=== PATIENT | female | born 1980 | race Asian ===

== ENCOUNTER 2019-08-07 12:00 | Outpatient (CLI) | payer OTHER | END 2019-08-07 23:59 | disposition home or self-care (01) | LOC: LAB.R 12:00 | PROVIDERS: ATTEND Obstetrics & Gynecology | DX: O34.211 Maternal care for low transverse scar from previous cesarean delivery (principal) | CPT/HCPCS: 87081; 87797 ==

== ENCOUNTER 2019-08-15 05:30 | Inpatient (IN) | payer OTHER ==
[2019-08-15] MEDS ORDERED: LACTATED RINGERS 1,000 ML IV ONE ×2 (05:57→07:28)
[2019-08-15 06:26] LABS: BASOPHILS % (AUTO) 0.4 %; EOSINOPHILS # (AUTO) 0.1 10^3/uL (0.0-0.7); LYMPHOCYTES # (AUTO) 1.4 10^3/uL (1.5-3.5); LYMPHOCYTES % (AUTO) 16.9 %; MEAN CORPUSCULAR HEMOGLOBIN 30.4 pg (27.0-31.0); MEAN CORPUSCULAR HGB CONC 32.6 g/dL (32.0-36.0); MEAN CORPUSCULAR VOLUME 93.2 fL (81.0-99.0); MONOCYTES # (AUTO) 0.6 10^3/uL (0.0-1.0); NEUTROPHILS # (AUTO) 5.9 10^3/uL (1.5-6.6); NEUTROPHILS % (AUTO) 73.9 %; PLT - PLATELET COUNT 247 10^3/uL (130-450); RED BLOOD COUNT 3.95 10^6/uL (4.20-5.40); RED CELL DISTRIBUTION WIDTH 13.2 % (12.0-15.0)
[2019-08-15 06:35] LABS: BILIRUBIN,URINE NEGATIVE (NEGATIVE); GLUCOSE, URINE (UA) NEGATIVE (NEGATIVE); KETONES,URINE (UA) NEGATIVE (NEGATIVE); LEUKOCYTE ESTERASE, URINE NEGATIVE (NEGATIVE); NITRITE,URINE NEGATIVE (NEGATIVE); OCCULT BLOOD,URINE NEGATIVE (NEGATIVE); PROTEIN,URINE NEGATIVE (NEGATIVE); UROBILINOGEN,URINE 0.2 (NORMAL) E.U./dL (NORMAL)
[2019-08-15 06:39] LABS: CLARITY,URINE CLEAR (CLEAR)
[2019-08-15 06:47] LABS: BACTERIA,URINE Rare /HPF (None Seen); RBC,URINE None Seen /HPF (0-5); SQUAMOUS EPITHELIAL CELL,UR MOD Squamous (<= Few)
--- NOTE | 2019-08-15 07:01 | ANESTHESIA ---
Pre-Anesthesia VS, & Labs - Diagnosis previous c/s, term - Procedure repeat c/s Vital Signs: Temp Pulse Resp BP Pulse Ox 36.7 C 74 16 111/67 100 08/15/19 06:01 08/15/19 06:01 08/15/19 06:01 08/15/19 06:01 08/15/19 06:01 Height 5 ft 5 in Weight (kg) 62.596 kg - NPO >8 hours - Is Patient ?: Yes - Lab Results Current Lab Results: Laboratory Tests 08/15/19 06:00: WBC 8.0, RBC 3.95 L, Hgb 12.0, Hct 36.8 L, MCV 93.2, MCH 30.4, MCHC 32.6, RDW 13.2, Plt Count 247, MPV 9.0, Neut # (Auto) 5.9, Lymph # (Auto) 1.4 L, [place] # (Auto) 0.6, Eos # (Auto) 0.1, Baso # (Auto) 0.0, Absolute Nucleated RBC 0.00, Nucleated RBC % 0.0 Fish Bones: 08/15/19 06:00 Home Medications and Allergies Active Medications Ampicillin Sodium 2 gm/ Sodium (Chloride) 100 mls @ 100 mls/hr IV ONCE KELLY Stop: 08/15/19 12:00 Allergies/Adverse Reactions: Allergies Allergy/AdvReac Type Severity Reaction Status Date / Time No Known Drug Allergies Allergy Verified 08/15/19 06:27 Anes History & Medical History - Anesthetic History Anesthesia Complications: reports: No previous complications - Medical History Cardiovascular: reports: None Pulmonary: reports: None Gastrointestinal: reports: None Urinary: reports: None Neuro: reports: None Musculoskeletal: reports: None Endocrine/Autoimmune: reports: None Blood Disorders: reports: None Skin: reports: None Smoking Status: Never smoker Psychosocial: reports: No issues indicated - Surgical History General: Cholecystectomy - Obstetrical History : 2 Parity: 1 Events: positive: None Complications: positive: None Exam General: Alert, Oriented x3, Cooperative, No acute distress Dental: WNL Mouth Openin Fingerbreadth Neck Mobility: Normal Mallampati classification: III Thyromental Distance: greater than 6 cm Respiratory: Lungs clear, Normal breath sounds, No respiratory distress, No accessory muscle use Cardiovascular: Regular rate, Normal S1, Normal S2, No murmurs Plan Anesthesia Type: Spinal Consent for Procedure(s) Verified and Reviewed: Yes Code Status: Attempt Resuscitation ASA classification: 2-Mild systemic disease Is this case an emergency?: No
[2019-08-15] MEDS ORDERED: CITRIC ACID/SODIUM CITRATE 15 ML UDC PO ONE (07:04)
[2019-08-15] MEDS ORDERED: PHENYLEPHRINE 10 MG/ML VIAL IV ONE (07:28)
[2019-08-15] MEDS ORDERED: fentaNYL 100 MCG/2 ML VIAL IVP ONE (07:28)
[2019-08-15] MEDS ORDERED: KETOROLAC 30 MG/ML VIAL IVP ONE (07:28)
[2019-08-15] MEDS ORDERED: SODIUM CHLORIDE 0.9% 500 ML IV ONE (07:28)
[2019-08-15] MEDS ORDERED: MORPHINE PF 5 MG/10 ML VIAL IVP ONE (07:28)
[2019-08-15] MEDS ORDERED: AMPICILLIN 2 GM in SODIUM CHLORIDE 0.9% MINIBAG 100 ML IV SCH (07:30)
[2019-08-15] MEDS ORDERED: OXYTOCIN/DEXTROSE 5 % 30 UNIT/500 ML BAG IV PRN (09:00)
[2019-08-15] MEDS ORDERED: SODIUM CHLORIDE FLUSH 0.9% 10 ML SYRINGE IVP PRN (09:00)
[2019-08-15] MEDS ORDERED: LACTATED RINGERS 1,000 ML IV SCH (09:00)
--- NOTE | 2019-08-15 11:00 | OPERATIVE REPORT ---
DATE OF SERVICE: 08/15/2019 Physician: Shashank Eisenberg DO PREOPERATIVE DIAGNOSES 1. Intrauterine at 39 weeks' gestation. 2. Previous section. POSTOPERATIVE DIAGNOSES 1. Delivery at 39 weeks' gestation. 2. Previous section. PROCEDURE: Repeat low transverse section. SURGEON: Shashank Eisenberg DO SURGICAL ASST: J Carlos Byers MD, who assisted in draping and retraction. ANESTHESIA: Spinal. ESTIMATED BLOOD LOSS: 100 mL WOUND CLASSIFICATION: Two. COUNTS: Sponge count and needle count were correct. CLINICAL HISTORY: Please see the History and Physical. SURGICAL FINDINGS: There were essentially no good surgical planes between the skin and the rectus musculature. This was all very dense scar tissue. The rectus musculature was also adhesed together in the midline. The fascia was again very much adhesed to the rectus musculature. The lower uterine segment also appeared to have a window more so to just a little right of the midline and proceeding to the left. This was exceptionally thin. One could see the head before the serosa was even opened. The fallopian tubes and ovaries bilaterally were otherwise unremarkable. No intraabdominal adhesions were appreciated. DESCRIPTION OF PROCEDURE: The patient was taken to the operative suite and placed on the surgical table. Under spinal anesthesia, she was placed in the supine position and a rolled blanket placed under the right hip. The patient was then prepped and draped in the usual fashion. A timeout then took place. Once the timeout was completed, a Pfannenstiel incision was then made through the previous surgical incision. Again, as is noted above, there were no readily definable surgical planes that one could see. The tissue was then incised to what appeared to be the level of the fascia. This was more recognizable on the left hand side than on the right. These were lysed. These were opened transversely. The rectus musculature was then carefully dissected free from the overlying rectus fascia. Again, this was densely adhesed, but care was made so that no fenestrations in the fascia were noted. With some difficulty, a central muscle split was attempted; however, again due to the loss of surgical planes on the superior level, a hemostat was then used in the midline to open the tissue. This did open into the abdominal cavity. An opening was made large enough to put a finger through, and no omentum was found adhesed to the anterior peritoneal wall. At this point in time, the peritoneum was incised vertically. The bladder blade was then placed in the lower pole of the incision. Again, the serosa overlying the lower uterine segment was visualized. There was a window that was noted above in the left lateral portion of the lower uterine segment. Metzenbaum scissors were then used to open the serosa. A hemostat then grasped the very thin tissue that was overlying the fetus at this time and incised. The membranes ruptured at this time with clear fluid. Metzenbaum scissors were then used to incise the incision in a transverse fashion with careful guidance to elevate the very thin tissue on the left also away from the head. Careful blunt dissection then took place to open the incision slightly wider. The surgeon's hand was then placed into the amniotic cavity and elevated the head through the wound. With gentle traction and gentle pressure on the uterus from above, the fetus was now delivered. There was a loose circum-nuchal cord x1 noted. Upon delivery, the was crying lustily and moving all limbs. The cord was then doubly clamped and cut and the passed off to awaiting nursing personnel in attendance. The is a viable female with Apgars of 9 and 9. She was born at 8:02 hours on 08/15/2017. A sample of the cord blood was then obtained and sent for evaluation. The placenta was then delivered intact with 3 vessels. The uterus was then extra-peritonealized and the myometrial cavity explored. There was some remaining membranes again deep in the lower uterine segment. These were now easily removed. The uterus was brenda down firmly. Blood loss was minimal. The myometrial incision was now reapproximated using 0 chromic suture in a running interlocking fashion. A second layer of 0 chromic suture was used in a running simple fashion to imbricate the first layer. There was a small hematoma that was appearing on the left lateral portion of the incision. This was measuring approximately 1.5 cm in diameter. A [id number] suture of 0 chromic was then used to overlie this and again hemostasis was assured and the hematoma was not expanding any further. Once it was again ensured that hemostasis had followed from the closure of the myometrial incision, the tubes and ovaries were inspected and found to be intact. The uterus was now returned to its anatomic position within the abdominal cavity. The pericolic gutters were then cleared of all blood clots and debris. Again, visualization of the incision in the lower uterine segment revealed no bleeding at all. Hemostasis was ensured. The rectus musculature was then brought to the midline using 0 chromic suture and hemostasis followed. The fascia was then reapproximated using 0 Vicryl suture in a running simple fashion and hemostasis followed. The skin was closed in a running subcuticular fashion using 4-0 Monocryl suture and hemostasis followed. Steri-Strips were placed and a sterile dressing was placed, and the patient was taken to the recovery room in stable condition. TD: 08/15/2019 09:39 JADA
[2019-08-15] MEDS: SODIUM CHLORIDE FLUSH 0.9% 10 ML SYRINGE IVP SCH ×2 (12:09→21:14)
[2019-08-15] MEDS: ONDANSETRON 4 MG/2 ML VIAL IVP PRN ×2 (12:09→14:56)
[2019-08-15] MEDS: ACETAMINOPHEN 500 MG TABLET PO SCH ×2 (14:33→22:41)
[2019-08-15] MEDS: SIMETHICONE CHEW 80 MG TABLET PO PRN (14:33)
[2019-08-15] MEDS: KETOROLAC 30 MG/ML VIAL IVP SCH ×2 (14:34→21:13)
[2019-08-16] MEDS: SODIUM CHLORIDE FLUSH 0.9% 10 ML SYRINGE IVP SCH (03:02)
[2019-08-16] MEDS: KETOROLAC 30 MG/ML VIAL IVP SCH (03:02)
[2019-08-16] MEDS: SIMETHICONE CHEW 80 MG TABLET PO PRN ×3 (05:57→13:58)
[2019-08-16] MEDS: ACETAMINOPHEN 500 MG TABLET PO SCH ×3 (05:57→21:42)
[2019-08-16 06:19] LABS: BASOPHILS % (AUTO) 0.3 %; EOSINOPHILS # (AUTO) 0.1 10^3/uL (0.0-0.7); EOSINOPHILS % (AUTO) 0.8 %; HGB - HEMOGLOBIN 10.9 g/dL (12.0-16.0); LYMPHOCYTES # (AUTO) 1.2 10^3/uL (1.5-3.5); LYMPHOCYTES % (AUTO) 13.3 %; MEAN CORPUSCULAR HEMOGLOBIN 31.5 pg (27.0-31.0); MEAN CORPUSCULAR HGB CONC 33.3 g/dL (32.0-36.0); MEAN CORPUSCULAR VOLUME 94.5 fL (81.0-99.0); MEAN PLATELET VOLUME 8.9 fL (7.9-10.8); MONOCYTES # (AUTO) 0.7 10^3/uL (0.0-1.0); MONOCYTES % (AUTO) 7.4 %; NEUTROPHILS % (AUTO) 77.6 %; PLT - PLATELET COUNT 184 10^3/uL (130-450); RED BLOOD COUNT 3.46 10^6/uL (4.20-5.40); RED CELL DISTRIBUTION WIDTH 13.2 % (12.0-15.0); WHITE BLOOD COUNT 9.1 x10^3/uL (4.8-10.8)
--- NOTE | 2019-08-16 08:28 | PROVIDER PROGRESS NOTE ---
Subjective - General Admit Date: 08/15/19 - Other Other Information/Narrative: The patient is doing very well today. She is passing flatus. She is ambulating well and tolerating diet well.Her lochia is light.She is breast-feeding without difficulty. Objective - Patient Data Vital Signs: Vital Signs x48h Temp Pulse Resp BP Pulse Ox 08/16/19 05:20 36.2 C L 66 16 93/47 L 98 08/16/19 02:00 36.6 C 59 L 16 95/47 L 96 08/16/19 00:43 36.5 C 69 16 94/59 L 98 Weight: Weight 08/14/19 08/15/19 08/16/19 23:59 23:59 23:59 Weight (kg) 62.59 kg Intake & Output: Intake and Output Totals x24h 08/14/19 08/15/19 08/16/19 23:59 23:59 23:59 Output Total 1655 300 Balance -1655 -300 - Lab Results Lab Results: 08/16/19 06:10 Other Lab Results: Lab Results x24hrs 08/16/19 08/15/19 Range/Units 06:10 07:20 WBC 9.1 (4.8-10.8) x10^3/uL RBC 3.46 L (4.20-5.40) 10^6/uL Hgb 10.9 L (12.0-16.0) g/dL Hct 32.7 L (37.0-47.0) % MCV 94.5 (81.0-99.0) fL MCH 31.5 H (27.0-31.0) pg MCHC 33.3 (32.0-36.0) g/dL RDW 13.2 (12.0-15.0) % Plt Count 184 (130-450) 10^3/uL MPV 8.9 (7.9-10.8) fL Neut # (Auto) 7.0 H (1.5-6.6) 10^3/uL Lymph # (Auto) 1.2 L (1.5-3.5) 10^3/uL [place] # (Auto) 0.7 (0.0-1.0) 10^3/uL Eos # (Auto) 0.1 (0.0-0.7) 10^3/uL Baso # (Auto) 0.0 (0.0-0.1) 10^3/uL Absolute Nucleated RBC 0.00 x10^3/uL Nucleated RBC % 0.0 /100WBC Blood Type Recheck O POSITIVE - Current Medications Current Medications: Current Medications Generic Name Dose Route Start Last Admin Trade Name Freq PRN Reason Stop Dose Admin Acetaminophen 1,000 mg 08/15/19 09:00 08/16/19 05:57 Tylenol PO 1,000 mg Q8H KELLY Administration OXYTOCIN/DEXTROSE 5 % 30 unit in 500 mls @ 999 mls/hr 08/15/19 09:00 08/15/19 09:36 Pitocin/Dextrose 5% IV 999 milliunit/min PRN PRN 50 mls/hr POST- HEMORR PREVENTION Administration Protocol 999 MILLIUNIT/MIN Ondansetron HCl 4 mg 08/15/19 09:00 08/15/19 14:56 Zofran Inj IVP 4 mg Q4H PRN Administration Nausea / Vomiting Simethicone 80 mg 08/15/19 09:00 08/16/19 05:57 Mylicon PO 80 mg TID PRN Administration Gas Sodium Chloride 10 ml 08/15/19 09:00 08/16/19 03:02 Normal Saline Flush 0.9% IVP 10 ml 0100,0900,1700 [facility] Administration - Physical Exam Comments/Other: Heart: Heart has a regular rate and rhythm without murmur Lungs: Lungs are clear to auscultation bilaterally without wheezes, rales or Abdomen: The abdomen is soft, pliable and nontender. Normoactive bowel sounds are noted in all 4 quadrants. The uterus is firm and nontender approximately 2 fingerbreadths below the umbilicus. Incision: Incision is clean and dry with any signs of infection. Steri-Strips are intact. Impression/Plan - Problem List Problem List: Postop day/ day #1-stable Plan: We will start stool softeners on the patient. We will remove all IV medications and IVs at this time. As long as the patient continues to do well discharge is anticipated tomorrow.
[2019-08-16] MEDS ORDERED: POLYETHYLENE GLYCOL 3350 17 GM PACKET PO PRN (08:29)
[2019-08-16] MEDS: DOCUSATE SODIUM 100 MG CAPSULE PO SCH ×2 (10:09→21:43)
[2019-08-16] MEDS: IBUPROFEN 600 MG TABLET PO SCH ×3 (10:09→21:42)
[2019-08-17] MEDS: IBUPROFEN 600 MG TABLET PO SCH ×2 (03:50→09:41)
[2019-08-17] MEDS: ACETAMINOPHEN 500 MG TABLET PO SCH (05:35)
[2019-08-17] MEDS: oxyCODONE 5 MG TABLET PO PRN ×2 (05:37→09:40)
--- NOTE | 2019-08-17 08:11 | PROVIDER PROGRESS NOTE ---
Subjective - General Admit Date: 08/15/19 - Other Other Information/Narrative: The patient is doing very well this morning we spoke through the patrol community service officer. The patrol community service officer's number is [phone]. She did have a bowel movement yesterday. Her lochia is light. She is breast-feeding without difficulty. Her pain is mild to moderate but she did take a Percocet this morning.She is ambulating well.She does wish to be discharged today. Objective - Patient Data Vital Signs: Vital Signs x48h Temp Pulse Resp BP Pulse Ox 08/17/19 05:39 36.3 C L 75 16 87/71 L 96 08/17/19 01:04 36.8 C 69 16 90/69 98 Weight: Weight 08/15/19 08/16/19 08/17/19 23:59 23:59 23:59 Weight (kg) 62.59 kg Intake & Output: Intake and Output Totals x24h 08/15/19 08/16/19 08/17/19 23:59 23:59 23:59 Output Total 1655 300 Balance -1655 -300 - Lab Results Lab Results: 08/16/19 06:10 - Current Medications Current Medications: Current Medications Generic Name Dose Route Start Last Admin Trade Name Freq PRN Reason Stop Dose Admin Acetaminophen 1,000 mg 08/15/19 09:00 08/17/19 05:35 Tylenol PO 1,000 mg Q8H KELLY Administration Docusate Sodium 100 mg 08/16/19 09:00 08/16/19 21:43 Colace 100mg Capsule PO 100 mg BID KELLY Administration OXYTOCIN/DEXTROSE 5 % 30 unit in 500 mls @ 999 mls/hr 08/15/19 09:00 08/15/19 09:36 Pitocin/Dextrose 5% IV 999 milliunit/min PRN PRN 50 mls/hr POST- HEMORR PREVENTION Administration Protocol 999 MILLIUNIT/MIN Ibuprofen 600 mg 08/16/19 09:00 08/17/19 03:50 Motrin PO 08/17/19 08:59 600 mg Q6H KELLY Administration Oxycodone HCl 5 mg 08/15/19 09:00 08/17/19 05:37 Roxicodone PO 5 mg Q4HR PRN Administration PAIN Simethicone 80 mg 08/15/19 09:00 08/16/19 13:58 Mylicon PO 80 mg TID PRN Administration Gas - Physical Exam Comments/Other: Heart: Heart has a regular rate and rhythm without murmur Lungs: Lungs clear to auscultation bilaterally without wheezes, rales or rhonchi Abdomen: The abdomen is soft, pliable and nontender. The uterus is firm and nontender 2 fingerbreadths below the umbilicus.Normoactive bowel sounds are noted. Incision: Incision is clean and dry with any signs of infection. It is well approximated. The Steri-Strips are in place. Impression/Plan - Problem List Problem List: Postop day/ day #2-stable Plan: The patient will be discharged home. She was discharged home with written and verbal instructions which included such things as: 1. She is to forego any lifting, tampons, douching or intercourse 2. She is to report any temperatures greater than 100.4 heavy vaginal bleeding or infections in the incision site 3. She is leave the Steri-Strips on for the next week after that she may take them off prior to them coming off she take a shower after they come off she may take a tub bath 4. She is to increase her fluids and continue her vitamins 5. She will use ibuprofen 600 mg p.o. 3 times daily as needed for cramping. 6. She was given a prescription for Percocet 5 mg #21 p.o. every 4 hours as needed pain no refills to supplement the ibuprofen 7. She does not drive a car for the next 2 weeks 8. As long as she does well we will see her in the office in 1 week for her initial visit and in 6 weeks for her full visit.She will call sooner if she has problems.
[2019-08-17 08:15] VITALS: BP 105/59
--- NOTE | 2019-08-17 08:59 | DISCHARGE SUMMARY ---
Physician: Shashank Eisenberg DO DATE OF ADMISSION: 08/15/2019 DATE OF DISCHARGE: 08/17/2019 ADMITTING DIAGNOSES 1. Intrauterine at 39 weeks' gestation. 2. Previous section. DISCHARGE DIAGNOSES 1. Delivery at 39 weeks' gestation. 2. Previous section. PROCEDURES: Repeat low transverse section. LABORATORIES: Admitting CBC revealed WBC is 8.0, RBCs of 3.95, hemoglobin 12.0, hematocrit 36.8 with 247, platelets. Discharge CBC revealed WBCs at 9.1, RBCs of 3.46, hemoglobin 10.9, hematocrit 32.7 with 184 platelets. HOSPITAL COURSE: Patient was admitted to the [facility] Labor and Delivery on the morning of 08/15/2019. An IV was begun. She was taken to surgery where a Joe catheter was inserted and sadia ly above said procedure was performed. She was given prophylactic antibiotics. One is referred to sadia ly operative note for full details. She was taken to her room in satisfactory condition. She contin ued to improve well throughout the day. By the a.m. of her first postop day, she was ambu lating well and tolerating diet well. She was passing flatus. Vital signs were stable. She is afeb rile. She was without difficulty. Later in the day she did have a bowel movement. By the a.m. of 08/17/2019, she continued to do well. She was ambulating well and tolerating diet well. Vital signs were stable. She was afebrile. The incision was clean and dry without any signs of inf ection. Lochia was light. The uterus was firm and nontender, 2 fingerbreadths below the umbilicus. She had normoactive bowel sounds. It was felt that patient could be stable and could be discharged to home. She did want to go home that day. On the day of discharge, we did talk with diplomatic interpreter/translator #[phone] to make sure that she did understand all of her discharge instructions. She was therefore disc harged to home with both written and verbal instructions including such things as 1. She is to forego any lifting, tampons, douching or intercourse. 2. She is to report any temperatures greater than 100.4, heavy vaginal bleeding or signs of infectio n at the incision site. 3. She is to leave the Steri-Strips on for the next week. After that she may take them off, prior t o them coming off, she may take a shower. After they come off, she may take a tub bath. 4. She is not to drive a car for the next 2 weeks. 5. She is to increase her fluids and continue her vitamins. 6. She will use ibuprofen 600 mg p.o. t.i.d. p.r.n. as her first line of pain control. 7. She was given a prescription for Percocet 5 mg #20, one p.o. every 4 hours p.r.n. pain. She is t o use this to supplement the ibuprofen, no refills were given with this. 8. As long as she does well, we will see her in the office in one week for an initial vis it, and in 6 weeks for full visit. She will call sooner if she has problems. TD: 08/17/2019 08:35
[2019-08-17] MEDS: DOCUSATE SODIUM 100 MG CAPSULE PO SCH (09:41)
== END 2019-08-17 10:00 | disposition home or self-care (01) | DRG 787 ==
LOC: FBP 05:30
PROVIDERS: ADMIT Obstetrics & Gynecology; ATTEND Obstetrics & Gynecology
PROC: 10D00Z1 Extraction of Products of Conception, Low, Open Approach (ICD-10-PCS; principal; 2019-08-15 07:30)
DX: O34.211 Maternal care for low transverse scar from previous cesarean delivery (principal); N99.61 Intraoperative hemorrhage and hematoma of a genitourinary system organ or structure complicating a genitourinary system procedure; N85.8 Other specified noninflammatory disorders of uterus; O69.81X0 Labor and delivery complicated by cord around neck, without compression, not applicable or unspecified; O24.420 Gestational diabetes mellitus in childbirth, diet controlled; Z3A.39 39 weeks gestation of pregnancy; Z37.0 Single live birth; Y83.8 Other surgical procedures as the cause of abnormal reaction of the patient, or of later complication, without mention of misadventure at the time of the procedure; Y92.234 Operating room of hospital as the place of occurrence of the external cause
CPT/HCPCS: 36415; 81001; 85025; 86850; 86900; 86901; A9270; J2274; J7120; 87086